=== PATIENT | female | born 2000 | race Caucasian/White ===

== ENCOUNTER 2024-09-05 04:14 | Emergency (ER) | payer OTHER ==
[~2024-09-05] VITALS: Ht 170.2 cm; Wt 81.8 kg
[2024-09-05 04:54] VITALS: BP 116/85
--- OUTSIDE RECORDS SUMMARY | 2024-09-05 04:55 | XMS ---
PreManage Notification: TAMMI KELLY Security Distribution Analyst Events No recent Security Events currently on file CRITERIA MET - [facility] - 2 Visits in 30 Days CARE PROVIDERS -[facility] Dentist: Neonatal Social Worker [facility] PHONE: [phone] -[place]- Dentist: Neonatal Social Worker [facility] [place] [facility] PHONE: [phone] [facility] Pediatric[facility] Current CARE SYSTEM \F\ <UNAVAIL> PHONE: [phone] Daniel has no Care Guidelines for this patient. E.D. VISIT COUNT (12 MO.) 1 ELLE Lu [facility] 1 [facility] TOTAL 3 NOTE: Visits indicate total known visits. ED/UCC VISIT TRACKING (12 MO.) 09/05/2024 04:15 [facility] TYPE: Emergency COMPLAINT: - SWOLLEN FINGER 08/20/2024 18:02 [facility] [place] TYPE: Emergency DIAGNOSES: - Streptococcal pharyngitis - Sore Throat - Sore Throat;Fever 11/26/2023 13:20 [facility] TYPE: Emergency DIAGNOSES: - Excessive and frequent menstruation with regular cycle - VAGINAL BLEEDING INPATIENT VISIT TRACKING (12 MO.) No inpatient visits to display in this time frame [email or web address]
== END 2024-09-05 04:55 | disposition home or self-care (01) ==
LOC: ED 04:14
DX: M79.89 Other specified soft tissue disorders (principal); Z88.5 Allergy status to narcotic agent
CPT/HCPCS: 99283